=== PATIENT | female | born 1975 ===

== ENCOUNTER 2018-04-30 12:17 | Outpatient (CLI) | payer OTHER | END 2018-04-30 12:41 | disposition home or self-care (01) | LOC: SONOGRAMA 12:17 | DX: N92.0 Excessive and frequent menstruation with regular cycle (principal); N84.0 Polyp of corpus uteri; Z12.31 Encounter for screening mammogram for malignant neoplasm of breast; N60.11 Diffuse cystic mastopathy of right breast ==

== ENCOUNTER 2019-12-08 09:06 | Outpatient (CLI) | payer OTHER | END 2019-12-08 13:12 | disposition home or self-care (01) | LOC: SONOGRAMA 09:06 | PROVIDERS: ATTEND Pathology Anatomic Pathology & Clinical Pathology | DX: E04.1 Nontoxic single thyroid nodule (principal) ==

== ENCOUNTER 2020-08-19 11:30 | Inpatient (IN) | payer OTHER ==
[~2020-08-19] VITALS: Ht 160 cm; Wt 77.1 kg
[2020-08-26] MEDS ORDERED: DICLOFENAC SOD100 G1 (07:53)
[2020-08-27] MEDS ORDERED: Tylenol #3 PO (08:50)
== END 2020-08-27 15:31 | disposition home or self-care (01) | DRG 743 ==
LOC: O/R 08-26 05:50 → OB/GYN 08-26 05:50 → SURH 08-26 07:00 → OB/GYN 08-26 12:58
PROVIDERS: ADMIT Obstetrics & Gynecology; ATTEND Obstetrics & Gynecology
PROC: 0UT2FZZ Resection of Bilateral Ovaries, Via Natural or Artificial Opening With Percutaneous Endoscopic Assistance (ICD-10-PCS; 2020-08-26)
PROC: 0UT7FZZ Resection of Bilateral Fallopian Tubes, Via Natural or Artificial Opening With Percutaneous Endoscopic Assistance (ICD-10-PCS; 2020-08-26)
PROC: 0UQF8ZZ Repair Cul-de-sac, Via Natural or Artificial Opening Endoscopic (ICD-10-PCS; 2020-08-26)
PROC: 0JQC0ZZ Repair Pelvic Region Subcutaneous Tissue and Fascia, Open Approach (ICD-10-PCS; 2020-08-26)
PROC: 0USG8ZZ Reposition Vagina, Via Natural or Artificial Opening Endoscopic (ICD-10-PCS; 2020-08-26)
PROC: 0TJB8ZZ Inspection of Bladder, Via Natural or Artificial Opening Endoscopic (ICD-10-PCS; 2020-08-26)
PROC: 0UT9FZZ Resection of Uterus, Via Natural or Artificial Opening With Percutaneous Endoscopic Assistance (ICD-10-PCS; principal; 2020-08-26 07:00)
DX: D25.1 Intramural leiomyoma of uterus (principal); D25.2 Subserosal leiomyoma of uterus; N81.11 Cystocele, midline; N84.1 Polyp of cervix uteri; N80.0 Endometriosis of uterus; N92.1 Excessive and frequent menstruation with irregular cycle